=== PATIENT | female | born 1970 | race African-American/Black ===

== ENCOUNTER 2023-01-11 11:04 | Inpatient (IN) | payer MEDICARE ==
[2023-01-11] MEDS ORDERED: Pantoprazole 40 MG VIAL ONE (11:45)
[2023-01-11] MEDS ORDERED: Ondansetron PF 4 MG/2 ML Vial ONE (11:45)
[2023-01-11] MEDS ORDERED: Ketorolac Tromethamine 30 MG/ML VIAL ONE (11:45)
[2023-01-11] MEDS ORDERED: Fentanyl 100 MCG/2 ML VIAL ONE (12:06)
[2023-01-11 12:21] LABS: #Monocytes 0.3 10x3/uL (0.0-1.1); #Neutrophils 10.7 10x3/uL (1.5-8.4); %Basophils 0.2 % (0.0-2.0); %Lymphocytes 6.7 % (18.0-47.0); %Monocytes 2.2 % (0.0-10.0); %Neutrophils 90.6 % (40.0-75.0); Hemoglobin 12.8 g/dL (12.0-15.5); Mean Corpuscular HGB CONC 33.4 g/dL (32.0-36.0); Mean Corpuscular Volume 77.7 fl (81.6-98.3); Mean Platelet Volume 9.6 fl (7.4-10.4); Platelet Count 290 10x3/uL (150-450); RBC Distribution Width 14.8 % (11.5-14.5); Red Blood Cell (RBC) Count 4.93 10x6/uL (3.90-5.03); White Blood Cell (WBC) Count 11.8 10x3/uL (3.5-10.5)
[2023-01-11 12:32] LABS: ALT (SGPT) 26 U/L (8-55); AST (SGOT) 26 U/L (5-34); Albumin 5.1 g/dL (3.5-5.0); Alkaline Phosphatase 107 U/L (40-110); Anion Gap 20 mmol/L (10-20); BUN (Urea Nitrogen) 12 mg/dL (9.8-20.1); Bilirubin, Total 0.9 mg/dL (0.2-1.2); Calc. Creatinine Clearance 0 mL/min (70-130); Calcium 10.4 mg/dL (7.8-10.44); Carbon Dioxide 22 mmol/L (22-29); Chloride 101 mmol/L (98-107); Estimated GFR 62; Globulin 4.1 g/dL (2.4-3.5); Glucose 303 mg/dL (70-105); Lipase 6 U/L (8-78); Potassium 3.5 mmol/L (3.5-5.1); Protein, Total 9.2 g/dL (6.0-8.3); Sodium 139 mmol/L (136-145)
[2023-01-11] MEDS ORDERED: Labetalol HCl 100 MG/20 ML VIAL ONE (13:15)
[2023-01-11] MEDS ORDERED: Furosemide 40 MG/4 ML VIAL ONE (13:49)
[2023-01-11] MEDS ORDERED: Dextrose 50% Abboject 50 ML SYRINGE SLOW IVP PRN (13:51)
[2023-01-11] MEDS ORDERED: hydrALAZINE 20 MG/ML VIAL SLOW IVP PRN (13:51)
[2023-01-11] MEDS ORDERED: Acetaminophen 650 MG Suppository PR PRN (13:51)
[2023-01-11] MEDS ORDERED: Dextrose 5% in Water 1,000 ML IV PRN (13:51)
[2023-01-11 16:11] VITALS: BMI 30.7
[2023-01-11] MEDS: HumaLOG 300 UNITS/3 ML VIAL SC PRN (18:26)
[2023-01-11] MEDS: Promethazine 25 MG TAB PO PRN (18:54)
[2023-01-11] MEDS: HYDROcodone/Acetaminophen 5/325 mg Tablet PO PRN (20:42)
[2023-01-11] MEDS: Apixaban 5 MG TAB PO SCH (20:42)
[2023-01-12] MEDS ORDERED: traZODone HCl 50 MG TAB PO SCH (00:15)
[2023-01-12] MEDS ORDERED: cloNIDine 0.1 MG TAB PO SCH ×2 (00:15→09:00)
[2023-01-12] MEDS: Promethazine 25 MG TAB PO PRN (00:16)
[2023-01-12] MEDS: Labetalol HCl 100 MG/20 ML VIAL SLOW IVP PRN ×2 (02:07→03:15)
[2023-01-12] MEDS ORDERED: Losartan Potassium 50 MG TAB PO SCH (02:15)
[2023-01-12] MEDS ORDERED: Carvedilol 12.5 MG TAB PO SCH ×2 (02:15→09:00)
[2023-01-12] MEDS: HYDROcodone/Acetaminophen 5/325 mg Tablet PO PRN ×2 (03:22→16:12)
[2023-01-12] MEDS ORDERED: Lorazepam 0.5 MG TAB PO PRN (04:38)
[2023-01-12 05:18] LABS: #Monocytes 0.6 10x3/uL (0.0-1.1); #Neutrophils 9.8 10x3/uL (1.5-8.4); %Basophils 0.3 % (0.0-2.0); %Monocytes 5.3 % (0.0-10.0); %Neutrophils 83.1 % (40.0-75.0); Hemoglobin 11.3 g/dL (12.0-15.5); Mean Corpuscular HGB CONC 32.8 g/dL (32.0-36.0); Mean Corpuscular Hemoglobin 25.5 pg (27.0-33.0); Mean Corpuscular Volume 77.5 fl (81.6-98.3); Mean Platelet Volume 10.2 fl (7.4-10.4); Platelet Count 288 10x3/uL (150-450); RBC Distribution Width 14.7 % (11.5-14.5); Red Blood Cell (RBC) Count 4.44 10x6/uL (3.90-5.03); White Blood Cell (WBC) Count 11.8 10x3/uL (3.5-10.5)
[2023-01-12 05:30] LABS: ALT (SGPT) 18 U/L (8-55); AST (SGOT) 14 U/L (5-34); Albumin 4.2 g/dL (3.5-5.0); Alkaline Phosphatase 89 U/L (40-110); Anion Gap 17 mmol/L (10-20); BUN (Urea Nitrogen) 21 mg/dL (9.8-20.1); Calc. Creatinine Clearance 87 mL/min (70-130); Calcium 9.9 mg/dL (7.8-10.44); Carbon Dioxide 20 mmol/L (22-29); Chloride 106 mmol/L (98-107); Estimated GFR 63; Globulin 3.8 g/dL (2.4-3.5); Glucose 237 mg/dL (70-105); Sodium 140 mmol/L (136-145)
[2023-01-12] MEDS: HumaLOG 300 UNITS/3 ML VIAL SC PRN ×3 (06:35→18:37)
[2023-01-12] MEDS ORDERED: Electrolyte Replacement Protocol 1 EACH FS SCH (07:45)
[2023-01-12] MEDS ORDERED: Magnesium 2 GM/50 ML(in water) 2 GM in Premix Bag 1 BAG IVPB SCH (09:00)
[2023-01-12] MEDS: Potassium Chloride 20 MEQ in Premix Bag 1 BAG IVPB SCH ×3 (09:30→13:48)
[2023-01-12] MEDS: Apixaban 5 MG TAB PO SCH ×2 (09:31→20:40)
[2023-01-12] MEDS: Losartan Potassium 50 MG TAB PO SCH ×2 (09:31→20:40)
[2023-01-12] MEDS: hydrALAZINE 25 MG TAB PO SCH ×3 (09:31→20:38)
[2023-01-12] MEDS: Furosemide 40 MG TAB PO SCH (09:32)
[2023-01-12] MEDS: Carvedilol 25 MG TAB PO SCH ×2 (09:32→20:39)
[2023-01-12] MEDS ORDERED: Pantoprazole 40 MG VIAL IVP SCH (10:00)
[2023-01-12] MEDS ORDERED: Ondansetron PF 4 MG/2 ML Vial IVP SCH (10:00)
[2023-01-12] MEDS: Ondansetron PF 4 MG/2 ML Vial IVP PRN (10:04)
[2023-01-12] MEDS ORDERED: Pantoprazole 40 MG VIAL ONE ×2 (13:20)
[2023-01-12] MEDS: Scopolamine 1.5 mg/72 hour Patch TD SCH (13:44)
[2023-01-12] MEDS: hydrALAZINE 20 MG/ML VIAL SLOW IVP PRN (13:45)
[2023-01-12] MEDS: Acetaminophen 325 MG TAB PO PRN (16:11)
[2023-01-12] MEDS: Gabapentin 300 MG CAP PO SCH ×2 (16:16→20:39)
[2023-01-12] MEDS: Atorvastatin Calcium 40 MG TAB PO SCH (20:40)
[2023-01-12] MEDS: Pantoprazole 40 MG VIAL IVP SCH (20:41)
[2023-01-12] MEDS: traZODone HCl 50 MG TAB PO SCH (21:04)
[2023-01-12] MEDS: levETIRAcetam 500 mg/5 ml Oral Solution PO SCH (21:06)
[2023-01-13] MEDS: HYDROcodone/Acetaminophen 5/325 mg Tablet PO PRN (03:56)
[2023-01-13] MEDS: hydrALAZINE 20 MG/ML VIAL SLOW IVP PRN (03:58)
[2023-01-13 04:38] LABS: #Basophils 0.1 10x3/uL (0.0-0.2); #Monocytes 0.6 10x3/uL (0.0-1.1); #Neutrophils 6.5 10x3/uL (1.5-8.4); %Basophils 0.6 % (0.0-2.0); %Eosinophils 0.1 % (0.0-6.0); %Monocytes 6.8 % (0.0-10.0); %Neutrophils 70.4 % (40.0-75.0); Hemoglobin 11.1 g/dL (12.0-15.5); Mean Corpuscular HGB CONC 32.7 g/dL (32.0-36.0); Mean Corpuscular Hemoglobin 25.2 pg (27.0-33.0); Mean Platelet Volume 9.7 fl (7.4-10.4); Platelet Count 282 10x3/uL (150-450); RBC Distribution Width 15.1 % (11.5-14.5); White Blood Cell (WBC) Count 9.3 10x3/uL (3.5-10.5)
[2023-01-13 04:48] LABS: Phosphorus 3.6 mg/dL (2.3-4.7)
[2023-01-13 04:49] LABS: Anion Gap 15 mmol/L (10-20); BUN (Urea Nitrogen) 29 mg/dL (9.8-20.1); Calc. Creatinine Clearance 75 mL/min (70-130); Calcium 9.3 mg/dL (7.8-10.44); Carbon Dioxide 22 mmol/L (22-29); Chloride 105 mmol/L (98-107); Estimated GFR 53; Glucose 194 mg/dL (70-105); Magnesium 2.5 mg/dL (1.6-2.6); Potassium 3.3 mmol/L (3.5-5.1); Sodium 139 mmol/L (136-145)
[2023-01-13] MEDS ORDERED: Potassium Chloride 20 MEQ TAB PO SCH (08:00)
[2023-01-13] MEDS ORDERED: Pantoprazole 40 MG VIAL ONE (09:54)
[2023-01-13] MEDS: Ondansetron PF 4 MG/2 ML Vial IVP PRN (10:03)
[2023-01-13] MEDS: Pantoprazole 40 MG VIAL IVP SCH ×2 (10:06→21:26)
[2023-01-13] MEDS: hydrALAZINE 25 MG TAB PO SCH ×3 (10:09→21:25)
[2023-01-13] MEDS: Gabapentin 300 MG CAP PO SCH ×3 (10:11→21:24)
[2023-01-13] MEDS: Carvedilol 25 MG TAB PO SCH ×2 (10:11→21:24)
[2023-01-13] MEDS: Apixaban 5 MG TAB PO SCH ×2 (10:11→21:24)
[2023-01-13] MEDS: Furosemide 40 MG TAB PO SCH (10:12)
[2023-01-13] MEDS: Losartan Potassium 50 MG TAB PO SCH ×2 (10:13→21:25)
[2023-01-13] MEDS: levETIRAcetam 500 mg/5 ml Oral Solution PO SCH ×2 (10:14→21:25)
[2023-01-13] MEDS: Acetaminophen 325 MG TAB PO PRN ×2 (10:15→17:56)
[2023-01-13] MEDS ORDERED: traMADol HCl 50 MG TAB PO PRN (10:32)
[2023-01-13] MEDS ORDERED: NIFEdipine XL 60 MG TAB PO SCH (12:00)
[2023-01-13] MEDS: HumaLOG 300 UNITS/3 ML VIAL SC PRN (16:22)
[2023-01-13] MEDS: Atorvastatin Calcium 40 MG TAB PO SCH (21:24)
[2023-01-13] MEDS: traZODone HCl 50 MG TAB PO SCH (21:26)
[2023-01-14] MEDS: Acetaminophen 325 MG TAB PO PRN ×2 (04:01→12:55)
[2023-01-14 04:03] LABS: Anion Gap 16 mmol/L (10-20); BUN (Urea Nitrogen) 35 mg/dL (9.8-20.1); Calc. Creatinine Clearance 79 mL/min (70-130); Carbon Dioxide 21 mmol/L (22-29); Chloride 105 mmol/L (98-107); Estimated GFR 56; Glucose 193 mg/dL (70-105); Magnesium 2.3 mg/dL (1.6-2.6); Potassium 3.4 mmol/L (3.5-5.1); Sodium 139 mmol/L (136-145)
[2023-01-14] MEDS: HumaLOG 300 UNITS/3 ML VIAL SC PRN ×3 (06:03→16:09)
[2023-01-14] MEDS ORDERED: Potassium Chloride 20 MEQ TAB PO SCH (08:00)
[2023-01-14] MEDS: Ondansetron PF 4 MG/2 ML Vial IVP PRN ×2 (09:37→15:34)
[2023-01-14] MEDS: Pantoprazole 40 MG VIAL IVP SCH ×2 (09:40→22:16)
[2023-01-14] MEDS: Apixaban 5 MG TAB PO SCH (09:44)
[2023-01-14] MEDS: Carvedilol 25 MG TAB PO SCH ×2 (09:44→22:17)
[2023-01-14] MEDS: NIFEdipine XL 60 MG TAB PO SCH (09:44)
[2023-01-14] MEDS: hydrALAZINE 25 MG TAB PO SCH ×3 (09:45→22:16)
[2023-01-14] MEDS: Gabapentin 300 MG CAP PO SCH ×3 (09:45→22:16)
[2023-01-14] MEDS: Losartan Potassium 50 MG TAB PO SCH ×2 (09:45→22:17)
[2023-01-14] MEDS: Metoclopramide HCl 10 MG/2 ML VIAL IVP SCH ×4 (10:57→22:15)
[2023-01-14] MEDS: levETIRAcetam 500 mg/5 ml Oral Solution PO SCH ×2 (10:57→22:18)
[2023-01-14] MEDS: Sodium Chloride 0.9% 1,000 ML IV SCH (15:34)
[2023-01-14] MEDS: Atorvastatin Calcium 40 MG TAB PO SCH (22:16)
[2023-01-14] MEDS: traZODone HCl 50 MG TAB PO SCH (22:16)
[2023-01-14] MEDS: Temazepam 15 MG CAP PO SCH (22:17)
[2023-01-15 04:22] LABS: #Eosinphils 0.1 10x3/uL (0.0-0.5); #Monocytes 0.5 10x3/uL (0.0-1.1); #Neutrophils 4.5 10x3/uL (1.5-8.4); %Basophils 0.5 % (0.0-2.0); %Eosinophils 0.9 % (0.0-6.0); %Lymphocytes 34.1 % (18.0-47.0); %Monocytes 6.1 % (0.0-10.0); %Neutrophils 58.1 % (40.0-75.0); Hemoglobin 11.1 g/dL (12.0-15.5); Mean Corpuscular HGB CONC 32.5 g/dL (32.0-36.0); Mean Corpuscular Hemoglobin 25.2 pg (27.0-33.0); Mean Corpuscular Volume 77.6 fl (81.6-98.3); Mean Platelet Volume 10.3 fl (7.4-10.4); Platelet Count 274 10x3/uL (150-450); RBC Distribution Width 14.8 % (11.5-14.5); Red Blood Cell (RBC) Count 4.41 10x6/uL (3.90-5.03); White Blood Cell (WBC) Count 7.8 10x3/uL (3.5-10.5)
[2023-01-15 04:36] LABS: Anion Gap 12 mmol/L (10-20); BUN (Urea Nitrogen) 26 mg/dL (9.8-20.1); Calc. Creatinine Clearance 90 mL/min (70-130); Carbon Dioxide 23 mmol/L (22-29); Chloride 106 mmol/L (98-107); Estimated GFR 65; Glucose 201 mg/dL (70-105); Potassium 3.8 mmol/L (3.5-5.1); Sodium 137 mmol/L (136-145)
[2023-01-15] MEDS: Sodium Chloride 0.9% 1,000 ML IV SCH ×2 (07:17→15:12)
[2023-01-15] MEDS ORDERED: Lidocaine 1% PF 5 ML VIAL ONE (07:59)
[2023-01-15] MEDS ORDERED: PROPOFOL 20 ML ONE (07:59)
[2023-01-15] MEDS ORDERED: Iopamidol 300 61% 100 ML VIAL FS ONE (10:05)
[2023-01-15] MEDS: Losartan Potassium 50 MG TAB PO SCH ×2 (10:20→20:53)
[2023-01-15] MEDS: Metoclopramide HCl 10 MG/2 ML VIAL IVP SCH ×4 (10:20→20:53)
[2023-01-15] MEDS: Gabapentin 300 MG CAP PO SCH ×3 (10:20→20:53)
[2023-01-15] MEDS: NIFEdipine XL 60 MG TAB PO SCH (10:22)
[2023-01-15] MEDS: hydrALAZINE 25 MG TAB PO SCH ×3 (10:22→20:54)
[2023-01-15] MEDS: Carvedilol 25 MG TAB PO SCH ×2 (10:22→20:53)
[2023-01-15] MEDS: Fluconazole 100 MG TAB PO SCH (10:22)
[2023-01-15] MEDS: Pantoprazole 40 MG VIAL IVP SCH (10:23)
[2023-01-15 10:47] LABS: HIV (1/2) Antibody/Antigen Non-Reactive (NonReactive)
[2023-01-15] MEDS: HYDROcodone/Acetaminophen 5/325 mg Tablet PO PRN ×2 (10:49→15:10)
[2023-01-15] MEDS: Scopolamine 1.5 mg/72 hour Patch TD SCH (10:51)
[2023-01-15] MEDS: levETIRAcetam 500 mg/5 ml Oral Solution PO SCH ×2 (10:54→20:52)
[2023-01-15 12:24] LABS: Hemoglobin A1c 7.5 % (4.0-6.0)
[2023-01-15] MEDS: HumaLOG 300 UNITS/3 ML VIAL SC PRN (13:11)
[2023-01-15] MEDS: traZODone HCl 50 MG TAB PO SCH (20:53)
[2023-01-15] MEDS: Atorvastatin Calcium 40 MG TAB PO SCH (20:54)
[2023-01-15] MEDS: Temazepam 15 MG CAP PO SCH (20:54)
[2023-01-16] MEDS: HumaLOG 300 UNITS/3 ML VIAL SC PRN ×3 (00:58→18:42)
[2023-01-16] MEDS: Sodium Chloride 0.9% 1,000 ML IV SCH ×2 (04:47→23:53)
[2023-01-16] MEDS: HYDROcodone/Acetaminophen 5/325 mg Tablet PO PRN ×3 (06:25→21:20)
[2023-01-16] MEDS: hydrALAZINE 25 MG TAB PO SCH ×3 (09:44→21:21)
[2023-01-16] MEDS: Pantoprazole 40 MG VIAL IVP SCH (09:44)
[2023-01-16] MEDS: Losartan Potassium 50 MG TAB PO SCH ×2 (09:44→21:20)
[2023-01-16] MEDS: Fluconazole 100 MG TAB PO SCH (09:45)
[2023-01-16] MEDS: Carvedilol 25 MG TAB PO SCH ×2 (09:45→21:21)
[2023-01-16] MEDS: Gabapentin 300 MG CAP PO SCH ×3 (09:45→21:20)
[2023-01-16] MEDS: NIFEdipine XL 60 MG TAB PO SCH (09:45)
[2023-01-16] MEDS: levETIRAcetam 500 mg/5 ml Oral Solution PO SCH ×2 (09:46→21:19)
[2023-01-16] MEDS: Metoclopramide HCl 10 MG/2 ML VIAL IVP SCH ×4 (09:46→21:21)
[2023-01-16] MEDS: Acetaminophen 325 MG TAB PO PRN (16:39)
[2023-01-16] MEDS: Temazepam 15 MG CAP PO SCH (21:21)
[2023-01-16] MEDS: Atorvastatin Calcium 40 MG TAB PO SCH (21:21)
[2023-01-16] MEDS: traZODone HCl 50 MG TAB PO SCH (21:22)
[2023-01-17] MEDS: Metoclopramide HCl 10 MG/2 ML VIAL IVP SCH ×4 (08:09→21:50)
[2023-01-17] MEDS: HYDROcodone/Acetaminophen 5/325 mg Tablet PO PRN ×2 (08:16→13:07)
[2023-01-17] MEDS: Carvedilol 25 MG TAB PO SCH ×2 (08:18→21:49)
[2023-01-17] MEDS: Losartan Potassium 50 MG TAB PO SCH ×2 (08:20→21:50)
[2023-01-17] MEDS: hydrALAZINE 25 MG TAB PO SCH ×3 (08:20→21:50)
[2023-01-17] MEDS: NIFEdipine XL 60 MG TAB PO SCH (08:21)
[2023-01-17] MEDS: Gabapentin 300 MG CAP PO SCH ×3 (08:22→21:49)
[2023-01-17] MEDS: Fluconazole 100 MG TAB PO SCH (08:23)
[2023-01-17] MEDS: Pantoprazole 40 MG VIAL IVP SCH (08:24)
[2023-01-17] MEDS: levETIRAcetam 500 mg/5 ml Oral Solution PO SCH ×2 (09:23→21:49)
[2023-01-17] MEDS: Sodium Chloride 0.9% 1,000 ML IV SCH ×2 (11:06→15:34)
[2023-01-17] MEDS: Lorazepam 0.5 MG TAB PO PRN (15:27)
[2023-01-17] MEDS ORDERED: traMADol HCl 50 MG TAB PO PRN (16:27)
[2023-01-17] MEDS: Acetaminophen 325 MG TAB PO PRN (18:56)
[2023-01-17] MEDS: Atorvastatin Calcium 40 MG TAB PO SCH (21:49)
[2023-01-17] MEDS: traZODone HCl 50 MG TAB PO SCH (21:50)
[2023-01-17] MEDS: Temazepam 15 MG CAP PO SCH (21:50)
[2023-01-18 04:14] LABS: Hemoglobin 10.3 g/dL (12.0-15.5); Platelet Count 237 10x3/uL (150-450)
[2023-01-18 04:32] LABS: Iron 50 ug/dL (50-170); Iron Binding Capacity, Total 275 mcg/dL (265-497)
[2023-01-18] MEDS: levETIRAcetam 500 mg/5 ml Oral Solution PO SCH (08:25)
[2023-01-18] MEDS: Losartan Potassium 50 MG TAB PO SCH ×2 (08:26→22:02)
[2023-01-18] MEDS: Gabapentin 300 MG CAP PO SCH ×3 (08:26→22:02)
[2023-01-18] MEDS: NIFEdipine XL 60 MG TAB PO SCH (08:26)
[2023-01-18] MEDS: Carvedilol 25 MG TAB PO SCH ×2 (08:26→22:02)
[2023-01-18] MEDS: hydrALAZINE 25 MG TAB PO SCH ×3 (08:26→22:00)
[2023-01-18] MEDS: Metoclopramide HCl 10 MG/2 ML VIAL IVP SCH (08:27)
[2023-01-18] MEDS: Fluconazole 100 MG TAB PO SCH (08:27)
[2023-01-18] MEDS: Pantoprazole 40 MG VIAL IVP SCH (08:28)
[2023-01-18] MEDS: Ondansetron PF 4 MG/2 ML Vial IVP PRN (08:45)
[2023-01-18] MEDS: Acetaminophen 325 MG TAB PO PRN (08:48)
[2023-01-18] MEDS: levETIRAcetam 500 MG TAB PO SCH ×2 (12:25→22:01)
[2023-01-18] MEDS: HumaLOG 300 UNITS/3 ML VIAL SC PRN (12:25)
[2023-01-18] MEDS: Scopolamine 1.5 mg/72 hour Patch TD SCH (12:27)
[2023-01-18] MEDS ORDERED: Bisacodyl 10 MG SUPP PR SCH (16:00)
[2023-01-18] MEDS: Furosemide 20 MG/2 ML VIAL SLOW IVP SCH (16:23)
[2023-01-18 20:13] LABS: Bilirubin Neg (Negative); Blood, Urine Negative (Negative); Clarity Clear (Clear); Glucose, Urine (Dipstick) Normal (Negative); Ketone, Urine Negative (Negative); Leukocyte Negative (Negative); Nitrite Negative (Negative); Protein, Urine (Dipstick) Negative (Neg-Trace); Urobilinogen Normal mg/dL (Less than 2)
[2023-01-18 20:23] LABS: Bacteria/HPF Rare-Few HPF (None Seen); CAUTI Indications for Culture Dysuria,urgency,freq; RBC/HPF None Seen HPF (0-3); Squamous Epithelial 0-3 HPF (0-3); WBC/HPF 0-3 HPF (0-3)
[2023-01-18 20:24] LABS: Urine Culture Reflex No No
[2023-01-18] MEDS: traZODone HCl 50 MG TAB PO SCH (22:00)
[2023-01-18] MEDS: Atorvastatin Calcium 40 MG TAB PO SCH (22:00)
[2023-01-18] MEDS: Lorazepam 0.5 MG TAB PO PRN (22:02)
[2023-01-18] MEDS: Temazepam 15 MG CAP PO SCH (22:02)
[2023-01-18] MEDS: Senokot 8.6 MG TAB PO SCH (22:02)
[2023-01-18] MEDS: Sodium Chloride 0.9% 1,000 ML IV SCH (23:54)
[2023-01-19] MEDS: Melatonin 3 MG TAB PO PRN ×2 (01:15→22:07)
[2023-01-19 03:54] LABS: #Eosinphils 0.1 10x3/uL (0.0-0.5); #Monocytes 0.6 10x3/uL (0.0-1.1); #Neutrophils 5.1 10x3/uL (1.5-8.4); %Basophils 0.5 % (0.0-2.0); %Eosinophils 0.8 % (0.0-6.0); %Lymphocytes 31.5 % (18.0-47.0); %Monocytes 7.1 % (0.0-10.0); %Neutrophils 59.9 % (40.0-75.0); Hemoglobin 10.4 g/dL (12.0-15.5); Mean Corpuscular HGB CONC 32.9 g/dL (32.0-36.0); Mean Corpuscular Hemoglobin 25.7 pg (27.0-33.0); Mean Corpuscular Volume 78.2 fl (81.6-98.3); Mean Platelet Volume 10.4 fl (7.4-10.4); Platelet Count 237 10x3/uL (150-450); RBC Distribution Width 15.4 % (11.5-14.5); Red Blood Cell (RBC) Count 4.04 10x6/uL (3.90-5.03); White Blood Cell (WBC) Count 8.5 10x3/uL (3.5-10.5)
[2023-01-19 03:57] LABS: ALT (SGPT) 8 U/L (8-55); AST (SGOT) 13 U/L (5-34); Albumin 3.7 g/dL (3.5-5.0); Alkaline Phosphatase 59 U/L (40-110); Anion Gap 12 mmol/L (10-20); BUN (Urea Nitrogen) 5 mg/dL (9.8-20.1); Bilirubin, Total 0.5 mg/dL (0.2-1.2); Calc. Creatinine Clearance 124 mL/min (70-130); Calcium 8.8 mg/dL (7.8-10.44); Carbon Dioxide 22 mmol/L (22-29); Chloride 107 mmol/L (98-107); Estimated GFR 96; Globulin 2.8 g/dL (2.4-3.5); Glucose 137 mg/dL (70-105); Magnesium 1.8 mg/dL (1.6-2.6); Protein, Total 6.5 g/dL (6.0-8.3); Sodium 138 mmol/L (136-145)
[2023-01-19] MEDS ORDERED: Potassium Chloride 20 MEQ TAB PO SCH ×2 (04:45→08:30)
[2023-01-19] MEDS ORDERED: Magnesium 2 GM/50 ML(in water) 2 GM in Premix Bag 1 BAG IVPB SCH ×2 (04:45→08:30)
[2023-01-19] MEDS: Furosemide 20 MG/2 ML VIAL SLOW IVP SCH (05:12)
[2023-01-19] MEDS ORDERED: Pantoprazole 40 MG VIAL ONE (07:59)
[2023-01-19] MEDS ORDERED: Electrolyte Replacement Protocol 1 EACH FS SCH (08:12)
[2023-01-19] MEDS: Gabapentin 300 MG CAP PO SCH ×3 (08:25→22:01)
[2023-01-19] MEDS: hydrALAZINE 25 MG TAB PO SCH ×3 (08:25→22:00)
[2023-01-19] MEDS: Fluconazole 100 MG TAB PO SCH (08:27)
[2023-01-19] MEDS: levETIRAcetam 500 MG TAB PO SCH ×2 (08:27→22:02)
[2023-01-19] MEDS: Losartan Potassium 50 MG TAB PO SCH ×2 (08:27→22:02)
[2023-01-19] MEDS: Pantoprazole 40 MG VIAL IVP SCH (08:29)
[2023-01-19] MEDS: Carvedilol 25 MG TAB PO SCH ×2 (08:29→22:02)
[2023-01-19] MEDS: Ondansetron PF 4 MG/2 ML Vial IVP PRN (08:30)
[2023-01-19] MEDS: NIFEdipine XL 90 MG TAB PO SCH (09:00)
[2023-01-19] MEDS ORDERED: Mineral Oil ENEMA PR SCH (12:00)
[2023-01-19] MEDS: Hydrochlorothiazide 25 MG TAB PO SCH (15:44)
[2023-01-19] MEDS: Acetaminophen 325 MG TAB PO PRN (19:09)
[2023-01-19] MEDS: Temazepam 15 MG CAP PO SCH (22:01)
[2023-01-19] MEDS: traZODone HCl 50 MG TAB PO SCH (22:02)
[2023-01-19] MEDS: Atorvastatin Calcium 40 MG TAB PO SCH (22:02)
[2023-01-20 05:23] LABS: #Monocytes 0.5 10x3/uL (0.0-1.1); #Neutrophils 3.4 10x3/uL (1.5-8.4); %Basophils 0.5 % (0.0-2.0); %Eosinophils 0.6 % (0.0-6.0); %Lymphocytes 40.5 % (18.0-47.0); %Monocytes 7.8 % (0.0-10.0); %Neutrophils 50.4 % (40.0-75.0); Hemoglobin 9.7 g/dL (12.0-15.5); Mean Corpuscular Hemoglobin 25.6 pg (27.0-33.0); Mean Corpuscular Volume 77.6 fl (81.6-98.3); Mean Platelet Volume 11.2 fl (7.4-10.4); Platelet Count 244 10x3/uL (150-450); RBC Distribution Width 15.7 % (11.5-14.5); Red Blood Cell (RBC) Count 3.79 10x6/uL (3.90-5.03); White Blood Cell (WBC) Count 6.6 10x3/uL (3.5-10.5)
[2023-01-20 05:26] LABS: ALT (SGPT) 8 U/L (8-55); AST (SGOT) 11 U/L (5-34); Albumin 3.5 g/dL (3.5-5.0); Alkaline Phosphatase 57 U/L (40-110); Anion Gap 10 mmol/L (10-20); BUN (Urea Nitrogen) 9 mg/dL (9.8-20.1); Bilirubin, Total 0.5 mg/dL (0.2-1.2); Calc. Creatinine Clearance 107 mL/min (70-130); Calcium 8.7 mg/dL (7.8-10.44); Carbon Dioxide 26 mmol/L (22-29); Chloride 105 mmol/L (98-107); Estimated GFR 81; Globulin 2.6 g/dL (2.4-3.5); Glucose 167 mg/dL (70-105); Magnesium 2.3 mg/dL (1.6-2.6); Potassium 2.9 mmol/L (3.5-5.1); Protein, Total 6.1 g/dL (6.0-8.3); Sodium 138 mmol/L (136-145)
[2023-01-20] MEDS ORDERED: Potassium Chloride 20 MEQ TAB PO SCH (06:00)
[2023-01-20] MEDS: Potassium Chloride 20 MEQ in Premix Bag 1 BAG IVPB SCH ×4 (06:34→22:10)
[2023-01-20] MEDS: Gabapentin 300 MG CAP PO SCH ×3 (12:58→21:43)
[2023-01-20] MEDS: Fluconazole 100 MG TAB PO SCH (13:25)
[2023-01-20] MEDS: Carvedilol 25 MG TAB PO SCH ×2 (13:25→21:43)
[2023-01-20] MEDS: levETIRAcetam 500 MG TAB PO SCH ×2 (13:26→21:42)
[2023-01-20] MEDS: Losartan Potassium 50 MG TAB PO SCH ×2 (13:26→21:43)
[2023-01-20] MEDS: Pantoprazole 40 MG VIAL IVP SCH (13:27)
[2023-01-20] MEDS: NIFEdipine XL 90 MG TAB PO SCH (13:27)
[2023-01-20] MEDS: Polyethylene Glycol 3350 17 GM Packet PO SCH ×2 (13:27→21:50)
[2023-01-20] MEDS: Hydrochlorothiazide 25 MG TAB PO SCH (15:06)
[2023-01-20] MEDS: Acetaminophen 325 MG TAB PO PRN (15:07)
[2023-01-20] MEDS ORDERED: Mineral Oil ENEMA PR SCH (16:00)
[2023-01-20 16:30] LABS: Potassium 3.6 mmol/L (3.5-5.1)
[2023-01-20] MEDS ORDERED: Metoclopramide HCl 10 MG TAB PO SCH (20:30)
[2023-01-20] MEDS: Lorazepam 0.5 MG TAB PO PRN (21:42)
[2023-01-20] MEDS: Melatonin 3 MG TAB PO PRN (21:42)
[2023-01-20] MEDS: Atorvastatin Calcium 40 MG TAB PO SCH (21:43)
[2023-01-20] MEDS: Senokot 8.6 MG TAB PO SCH (21:50)
[2023-01-20] MEDS: traZODone HCl 50 MG TAB PO SCH (21:50)
[2023-01-20] MEDS: Temazepam 15 MG CAP PO SCH (21:50)
[2023-01-20] MEDS ORDERED: Potassium Chloride 20 MEQ in Premix Bag 1 BAG IVPB SCH (22:00)
[2023-01-21 06:54] LABS: #Monocytes 0.5 10x3/uL (0.0-1.1); #Neutrophils 2.8 10x3/uL (1.5-8.4); %Basophils 0.7 % (0.0-2.0); %Eosinophils 0.7 % (0.0-6.0); %Lymphocytes 44.5 % (18.0-47.0); %Monocytes 8.3 % (0.0-10.0); %Neutrophils 45.6 % (40.0-75.0); Hemoglobin 10.1 g/dL (12.0-15.5); Mean Corpuscular HGB CONC 32.3 g/dL (32.0-36.0); Mean Corpuscular Hemoglobin 25.5 pg (27.0-33.0); Mean Platelet Volume 10.8 fl (7.4-10.4); Platelet Count 248 10x3/uL (150-450); RBC Distribution Width 15.9 % (11.5-14.5); Red Blood Cell (RBC) Count 3.96 10x6/uL (3.90-5.03); White Blood Cell (WBC) Count 6.1 10x3/uL (3.5-10.5)
[2023-01-21 07:16] LABS: Anion Gap 12 mmol/L (10-20); BUN (Urea Nitrogen) 8 mg/dL (9.8-20.1); Calc. Creatinine Clearance 111 mL/min (70-130); Calcium 9.1 mg/dL (7.8-10.44); Carbon Dioxide 23 mmol/L (22-29); Chloride 106 mmol/L (98-107); Estimated GFR 84; Glucose 163 mg/dL (70-105); Potassium 3.5 mmol/L (3.5-5.1); Sodium 137 mmol/L (136-145)
[2023-01-21] MEDS: Metoclopramide HCl 10 MG/2 ML VIAL IVP SCH ×4 (07:30→21:50)
[2023-01-21] MEDS ORDERED: Potassium Chloride 20 MEQ TAB PO SCH (08:30)
[2023-01-21] MEDS: Polyethylene Glycol 3350 17 GM Packet PO SCH ×2 (10:02→21:49)
[2023-01-21] MEDS: levETIRAcetam 500 MG TAB PO SCH ×2 (10:02→21:51)
[2023-01-21] MEDS: NIFEdipine XL 90 MG TAB PO SCH (10:02)
[2023-01-21] MEDS: Losartan Potassium 50 MG TAB PO SCH ×4 (10:03→21:53)
[2023-01-21] MEDS: Gabapentin 300 MG CAP PO SCH ×3 (10:04→21:50)
[2023-01-21] MEDS: Carvedilol 25 MG TAB PO SCH ×2 (10:05→21:49)
[2023-01-21] MEDS: Senokot 8.6 MG TAB PO SCH ×2 (10:06→21:50)
[2023-01-21] MEDS: Pantoprazole 40 MG VIAL IVP SCH (10:06)
[2023-01-21] MEDS: Acetaminophen 325 MG TAB PO PRN (11:38)
[2023-01-21] MEDS ORDERED: Mineral Oil ENEMA PR SCH (12:00)
[2023-01-21] MEDS ORDERED: Magnesium Citrate 300 ML BOT PO SCH (12:00)
[2023-01-21 17:52] LABS: Hemoglobin A1c 6.9 % (4.0-6.0)
[2023-01-21] MEDS: Temazepam 15 MG CAP PO SCH (21:49)
[2023-01-21] MEDS: traZODone HCl 50 MG TAB PO SCH (21:49)
[2023-01-21] MEDS: Atorvastatin Calcium 40 MG TAB PO SCH (21:51)
[2023-01-21] MEDS: Apixaban 5 MG TAB PO SCH (21:51)
[2023-01-21] MEDS: Melatonin 3 MG TAB PO PRN (22:34)
[2023-01-22 05:11] LABS: #Basophils 0.1 10x3/uL (0.0-0.2); #Eosinphils 0.1 10x3/uL (0.0-0.5); #Monocytes 0.6 10x3/uL (0.0-1.1); #Neutrophils 3.3 10x3/uL (1.5-8.4); %Basophils 0.9 % (0.0-2.0); %Eosinophils 1.1 % (0.0-6.0); %Lymphocytes 39.3 % (18.0-47.0); %Monocytes 8.3 % (0.0-10.0); %Neutrophils 50.1 % (40.0-75.0); Hemoglobin 9.6 g/dL (12.0-15.5); Mean Corpuscular HGB CONC 32.8 g/dL (32.0-36.0); Mean Corpuscular Hemoglobin 25.9 pg (27.0-33.0); Mean Platelet Volume 10.7 fl (7.4-10.4); Platelet Count 239 10x3/uL (150-450); RBC Distribution Width 15.8 % (11.5-14.5); Red Blood Cell (RBC) Count 3.71 10x6/uL (3.90-5.03); White Blood Cell (WBC) Count 6.6 10x3/uL (3.5-10.5)
[2023-01-22 05:36] LABS: Anion Gap 14 mmol/L (10-20); BUN (Urea Nitrogen) 9 mg/dL (9.8-20.1); Calc. Creatinine Clearance 109 mL/min (70-130); Calcium 8.9 mg/dL (7.8-10.44); Carbon Dioxide 22 mmol/L (22-29); Chloride 105 mmol/L (98-107); Estimated GFR 82; Glucose 219 mg/dL (70-105); Sodium 137 mmol/L (136-145)
[2023-01-22] MEDS: HumaLOG 300 UNITS/3 ML VIAL SC PRN (06:41)
[2023-01-22] MEDS: Pantoprazole 40 MG VIAL IVP SCH (07:57)
[2023-01-22] MEDS: Carvedilol 25 MG TAB PO SCH (07:58)
[2023-01-22] MEDS: Apixaban 5 MG TAB PO SCH (07:58)
[2023-01-22] MEDS: NIFEdipine XL 90 MG TAB PO SCH (07:59)
[2023-01-22] MEDS: Gabapentin 300 MG CAP PO SCH (07:59)
[2023-01-22] MEDS: Senokot 8.6 MG TAB PO SCH (08:00)
[2023-01-22] MEDS: Polyethylene Glycol 3350 17 GM Packet PO SCH (08:01)
[2023-01-22] MEDS: levETIRAcetam 500 MG TAB PO SCH (08:01)
[2023-01-22] MEDS: Losartan Potassium 50 MG TAB PO SCH (08:01)
[2023-01-22 08:23] VITALS: BP 110/57; TEMP 98.1
[2023-01-22] MEDS: Metoclopramide HCl 10 MG/2 ML VIAL IVP SCH (09:03)
== END 2023-01-22 09:40 | disposition home health service (06) | DRG 74 ==
LOC: CSHERS 11:04 → SUATTDRO 11:04 → CSHTELE 13:32
PROVIDERS: ADMIT Internal Medicine; ATTEND Internal Medicine
PROC: 0DB58ZX Excision of Esophagus, Via Natural or Artificial Opening Endoscopic, Diagnostic (ICD-10-PCS; principal; 2023-01-15)
DX: E11.43 Type 2 diabetes mellitus with diabetic autonomic (poly)neuropathy (principal); B37.81 Candidal esophagitis; I50.32 Chronic diastolic (congestive) heart failure; I69.354 Hemiplegia and hemiparesis following cerebral infarction affecting left non-dominant side; K59.00 Constipation, unspecified; K31.84 Gastroparesis; I16.0 Hypertensive urgency; I48.91 Unspecified atrial fibrillation; I11.0 Hypertensive heart disease with heart failure; G40.909 Epilepsy, unspecified, not intractable, without status epilepticus; E11.65 Type 2 diabetes mellitus with hyperglycemia; K21.9 Gastro-esophageal reflux disease without esophagitis; E78.5 Hyperlipidemia, unspecified; G89.29 Other chronic pain; F32.A Depression, unspecified; F41.9 Anxiety disorder, unspecified; E86.0 Dehydration; Z20.822 Contact with and (suspected) exposure to COVID-19; Z79.01 Long term (current) use of anticoagulants; Z79.899 Other long term (current) drug therapy; Z79.4 Long term (current) use of insulin; Z87.891 Personal history of nicotine dependence; D25.9 Leiomyoma of uterus, unspecified; D64.9 Anemia, unspecified
CPT/HCPCS: 36415; 36416; 70450; 71045; 74018; 74177; 76705; 76770; 78264; 80048; 80053; 80177; 81001; 82088; 82728; 83036; 83540; 83550; 83690; 83735; 83880; 84100; 84244; 84484; 85014; 85018; 85025; 85049; 85610; 87389; 87811; 88305; 93005; 93306; 94760; 96361; 96374; 96375; A9541; C9113; J0360; J1815; J1885; J1940; J2405; J2704; J2765; J3010; J3475; J3480; J7050; Q0169; Q9967; U0003; U0005